=== PATIENT | male | born 1940 | race Caucasian/White ===

== ENCOUNTER 2016-11-12 20:03 | Inpatient (IN) ==
[2016-11-12 20:51] LABS: MANUAL DIFF NEEDED? NO
[2016-11-12 20:54] LABS: BASO% 0.5 % (0.0-0.8); EOS# 0.26 X1000 (0.0-0.7); HEMATOCRIT 38.2 % (42.0-52.0); HEMOGLOBIN 13.1 g/dL (14.0-18.0); IMM GRAN# 0.12 X1000 (0.0-0.04); IMM GRAN% 0.9 % (0.0-0.5); LYMPH# 3.46 X1000 (1.2-3.4); LYMPH% 26.7 % (20.5-51.1); MCH 28.6 PG (27-31); MCHC 34.3 g/dL (33-37); MCV 83.4 FL (81-99); MONO# 1.93 X1000 (0.11-0.59); MONO% 14.9 % (1.7-9.3); MPV 10.5 FL (7.4-10.4); PLT 231 X1000 (130-400); RBC 4.58 XMIL (4.7-6.1)
[2016-11-12 21:20] LABS: ALBUMIN 3.3 g/dL (3.5-5.0); CALCIUM 9.4 mg/dL (8.8-10.2); TOTAL BILIRUBIN 0.23 mg/dL (0.20-1.00); TOTAL PROTEIN 6.3 g/dL (6.3-8.3)
--- NOTE | 2016-11-12 21:24 | Diag Imaging Result Doc PS360 ---
EXAM: CHEST-2 VIEWS HISTORY: sob TECHNIQUE: AP and lateral chest COMMENT: There is no evidence of acute cardiac or pulmonary disease. Compared to 02/19/2016 there is been no significant change in the appearance of the chest. IMPRESSION: No acute disease Electronically signed by Juan Nguyễn 11/12/2016 9:22 PM
[2016-11-12] MEDS ORDERED: NS 1,000 ML IV ONE (21:58)
--- NOTE | 2016-11-12 22:26 | PROVIDER DOCUMENTATION ---
This chart was entered by Kathrine Bush Scribe, acting as scribe for Mehdi Carr MD. HPI-General Adult - General Chief Complaint: General Adult Stated Complaint: "DEHYDRATED" Time Seen by Provider: 11/12/16 20:37 Source: patient Allergies/Adverse Reactions: Patient Allergies Allergy/AdvReac Type Severity Reaction Status Date / Time No Known Allergies Allergy Verified 11/12/16 21:13 Home Medications: Home Medication List Medication Instructions Recorded Confirmed Last Taken Type Amlodipine Besylate/Benazepril 5 - 20 mg PO DAILY 03/10/12 02/19/16 02/19/16 08: 00 History [Lotrel 5-20 mg Capsule] Calcium Carbonate/Vitamin D2 2 tab PO DAILY 03/10/12 02/19/16 02/19/16 08:00 History [Calcium with Vit D Tablet] Flaxseed Oil 1,200 mg PO DAILY 03/10/12 02/19/16 02/19/16 08:00 History Furosemide [Lasix] 40 mg PO DAILY 03/10/12 02/19/16 02/19/16 08:00 History Insulin Glargine,Hum.rec.anlog 55 units SUBQ BID 03/10/12 02/19/16 02/19/16 08: 00 History [Lantus] Insulin Lispro [Humalog] 36 units SUBQ TID 03/10/12 02/19/16 02/19/16 12:00 History Omeprazole [Prilosec] 20 mg PO DAILY 03/10/12 02/19/16 02/19/16 07:00 History Pregabalin [Lyrica] 150 mg PO DAILY 03/10/12 02/19/16 02/19/16 08:00 History Tamsulosin [Flomax] 0.4 mg PO DAILY 03/10/12 02/19/16 02/19/16 08:00 History Celecoxib [Celebrex] 02/19/16 02/19/16 08:00 History Duloxetine [Cymbalta] 60 cap 02/19/16 02/19/16 08:00 History Acarbose [Precose] 100 mg PO TID #90 tablet 02/23/16 Unknown Rx Levofloxacin [Levaquin] 250 mg PO DAILY #7 tablet 02/23/16 Unknown Rx Liraglutide [Victoza] 1.2 mg SUBQ DAILY #3 pen.injctr 02/23/16 Unknown Rx Sitagliptin [Januvia] 100 mg PO DAILY #90 tablet 02/23/16 Unknown Rx - History of Present Illness -Gen Adult Nature of Presenting Problems: Pt is a 76 year old male who came to the ED with a cc of dehydration and N/V/D. Pt reports yesterday he had a virus yesterday and today he is unable to void. Pt reports he is SOB today. Location of Pain/Injury: reports: none Pain Radiation: reports: no radiation Quality of Pain: reports: none Severity: reports: mild Onset/Duration: reports: 24 hours ago Timing: reports: still present Context/Activities at Onset: reports: none Modifying Factors: improves with: nothing Associated Symptoms: reports: diarrhea, nausea, shortness of breath, vomiting Similar Symptoms Previously?: No Recently seen or treated by another doctor?: No Review of Systems - Adult - REVIEW OF SYSTEMS - ADULT Constitutional: denies: chills, fever Eyes: reports: no symptoms reported Ears, Nose, Mouth & Throat: denies: ear pain, loose teeth Cardiovascular: reports: no symptoms reported Respiratory: reports: shortness of breath. denies: cough, pleurisy, wheezing Gastrointestinal: reports: diarrhea, nausea, vomiting. denies: difficulty swallowing, frequent heartburn Genitourinary: denies: flank pain, hesitency Musculoskeletal: reports: no symptoms reported Integumentary: reports: no symptoms reported Neurological: denies: loss of balance, seizure Psychiatric: reports: no symptoms reported Endocrine: reports: no symptoms reported Hematologic/Lymphatic: reports: no symptoms reported Allergic/Immunologic: reports: no symptoms reported All Other Systems: Reviewed and Negative Past History - Adult - PAST MEDICAL HISTORY-ADULT Review of Records: reports: Nursing Assessment Review Major Childhood Illnesses: reports: denies history Cardiovascular: reports: CHF, HTN Respiratory: reports: asthma, COPD Gastrointestinal: reports: denies history Obstetrical/Gynecological: reports: denies history Genitourinary: reports: kidney disease Musculoskeletal: reports: denies history Neurological: reports: denies history Endocrine/Immune: reports: denies history Other Conditions: reports: denies history - IMMUNIZATION STATUS Childhood Immunizations: See Nurse Assessment Flu Vaccine: See Nurse Assessment - FAMILY HISTORY Family History: reviewed, not pertinent Physical Exam-General - CONSTITUTIONAL General Appearance: alert, no apparent distress, obese, other (short neck, large neck; when pt was sitting up blood pressure dropped) - EYES Eyes: PERRL/EOMI, pink conjunctivae - HEAD, EARS, NOSE, MOUTH & THROAT HENMT: normocephalic/atraumatic, moist mucous membranes - NECK Neck: non-tender, other (excessive neck tissue; sleep apnea) - RESPIRATORY Respiratory: chest non-tender, lungs clear - CARDIOVASCULAR Cardiovascular: normal peripheral pulses, tachycardia - GASTROINTESTINAL (ABDOMEN) Abdominal Exam: normal bowel sounds, non tender - MUSCULOSKELETAL Back Exam: normal inspection, no CVA tenderness Extremity: normal range of motion, non-tender - SKIN Integumentary: normal color, normal turgor - NEUROLOGIC Neurologic: grossly normal - PSYCHIATRIC Psych/Mental Status: normal mood/affect, normal thought content, normal thought process, oriented x 3 Progress - PLAN OF CARE/RESULTS Progress/Plan/Lab Results: Vital Signs - 8 hr 11/12/16 20:09 Temperature 99.5 F Pulse Rate 112 H Respiratory Rate 18 Blood Pressure 101/64 O2 Sat by Pulse Oximetry 95 Laboratory Results - last 24 hr 11/12/16 11/12/16 11/12/16 20:35 20:35 20:35 WBC 12.97 H RBC 4.58 L Hgb 13.1 L Hct 38.2 L MCV 83.4 MCH 28.6 MCHC 34.3 RDW Std Deviation 14.9 H Plt Count 231 MPV 10.5 H Immature Gran % (Auto) 0.9 H Neut % (Auto) 55.0 Lymph % (Auto) 26.7 [place] % (Auto) 14.9 H Eos % (Auto) 2.0 Baso % (Auto) 0.5 Immature Gran # (Auto) 0.12 H Neut # (Auto) 7.13 H Lymph # (Auto) 3.46 H [place] # (Auto) 1.93 H Eos # (Auto) 0.26 Baso # (Auto) 0.07 Sodium 135 L Potassium 4.0 Chloride 99 Carbon Dioxide 19 L Anion Gap 17 BUN 48 H Creatinine 6.6 H Estimated GFR/1.73 m2 8 BUN/Creatinine Ratio 7 Glucose 118 H Calculated Osmolality 284 Calcium 9.4 Total Bilirubin 0.23 AST 14 ALT 12 Alkaline Phosphatase 90 Total Protein 6.3 Albumin 3.3 L Globulin 3.0 Albumin/Globulin Ratio 1.1 Plasma Lactate 1.5 Orders Category Date Time Status CHEST-2 VIEWS [RAD] Stat Exams 11/12/16 20:26 Completed CBC WITH DIFF [HEME] Stat Lab 11/12/16 20:35 Completed COMPREHENSIVE METABOLIC PANEL [CHEM] Stat Lab 11/12/16 20:35 Completed LACTATE, PLASMA [CHEM] Stat Lab 11/12/16 20:35 Completed EKG [EKG] Stat Ther 11/12/16 20:30 Ordered Result Diagrams: 11/12/16 20:35 11/12/16 20:35 - EKG 1 Time of EKG reading by physician:: 20:41 EKG Read and Signed by:: Mehdi Carr EKG Interpretation (*Must complete 3 of following elements*): Abnormal Rate: 106 (w/ frequent ventricular complexes; T wave abnormality, consider lateral ischemia. ) Rhythm: sinus tachycardia w/ 1st degree AV block - XRAY 1 XRAY Study: Chest (no acute disease) - CONSULTS/PCP/HOSPITALIST Notification #1 *Consult/PCP/Hospitalist*: Dr. Carl Time Discussed: 22:15 Departure - Departure Date of Disposition Decision: 11/12/16 Time of Disposition Decision: 22:22 DIAGNOSIS: Volume depletion, Diabetes Renal failure (ARF), acute on chronic Qualifiers: Acute renal failure type: unspecified Chronic kidney disease stage: stage 4 ( severe) Qualified Code(s): N17.9 - Acute kidney failure, unspecified; N18.4 - Chronic kidney disease, stage 4 (severe) Disposition: ADMITTED INPATIENT 09 Certified Medical Emergency: Emergent Condition: Fair Referrals and Follow-Ups: Saul Tabor MD [Primary Care Provider] - - Critical Care Note This patient required my direct & personal management of CC.: No This chart was documented by the indicated scribe, (Kathrine Bush Scribe) and accurately reflects the services I performed and decisions made by me, Mehdi Carr MD, as attested by the provider's signature.
[2016-11-13] MEDS ORDERED: TYLENOL PO PRN (00:41)
[2016-11-13] MEDS ORDERED: ZOFRAN IV PRN (00:41)
--- NOTE | 2016-11-13 00:51 | HISTORY AND PHYSICAL ---
REASON FOR ADMISSION: A 2-day history of lightheadedness and weakness, following a 4-day history of vomiting and diarrhea. HISTORY OF PRESENT ILLNESS: Mr. Aylin Peters is a 76-year-old male with a past medical history of hypertension, sleep apnea, BPH, hyperlipidemia, lumbar spondylosis, kidney stones, type 2 diabetes, restless legs syndrome, who comes in today complaining of generalized weakness, thirst, dizziness posturally. He states that for the last 4 days he has been having intermittent nausea, vomiting, diarrhea, which got worse over the last 36 hours. He said he is averaging about between 5-10 times a day, i.e., that is diarrhea and vomiting. No melanotic stools. No hematochezia, hematemesis, or coffee grounds. No noticeable abdominal pain, except for some mild bilateral groin pain, which started 24 hours ago. No abdominal distention, fever, or chills. No genitourinary symptoms, although he has had a longstanding history of urge incontinence. His a , who is a retired nurse, was very concerned today because the patient had not voided in the last 36 hours. No bleeding from any orifice. He reports that both she and her brother-in- law are now having bowel-type GI symptoms. The patient's vomiting and diarrhea ceased sometime around midday today, and he had no other GI-related complaints. No PND or orthopnea. No cardiorespiratory symptoms. No chest pain. REVIEW OF SYSTEMS: No arthralgias or rash. No confusion or cognitive impairment. Twelve-system review is negative, except positive findings per HPI. ALLERGIES: No allergies. MEDICATIONS: Lotrel 5/20 daily, Lipitor 40 mg daily, biotin 10 mg daily, calcium carbonate with vitamin D 2 tablets daily, Cymbalta 30 mg daily, flax seed 1200 mg daily, Lasix 80 mg daily, Lantus 55 units b.i.d., lispro insulin 36 units with meals, Victoza 1.2 mg daily, Prilosec 20 mg daily, Lyrica 100 mg b.i.d., Januvia 100 mg daily, Flomax 0.4 mg daily. FAMILY HISTORY: Notable for coronary artery disease, diabetes. SOCIAL HISTORY: Patient is . He does smoke, drink, or use illicit drugs. SURGICAL HISTORY: Umbilical hernia repair, hemorrhoidectomy, right knee surgery, lumbar spine surgery, and lithotripsy. LABORATORY WORK: White count 13,000. Hemoglobin and hematocrit 13 and 38. Platelets 231,000. BUN 48, creatinine 6.6, glucose 118. Chest film: No acute cardiopulmonary process. Did note that his skeletal structure of his thoracic cavity showed some degree of osteoporosis. PHYSICAL EXAMINATION: GENERAL: Morbidly obese elderly man who is not in acute distress. He is A and O x3. Normal mood and affect. VITAL SIGNS: Blood pressure 128/89, respirations 21, pulse is 94, temperature is 99.5 degrees. He is 95% on 4 L. HEENT: Head is normocephalic, atraumatic. Eyes DAVE, EOMI. He is anicteric and not pale. ENT: Oropharynx normal. NECK: Supple. There is no JVD or carotid bruits. NECK: Short and thick. CHEST: Clear to auscultation. Good air entry in both lung rizo. CARDIOVASCULAR: First and second heart sounds heard. No gallops, murmurs, rubs. Rhythm is regular. ABDOMEN: Protuberant, soft, with mild left CVA tenderness. Left lower quadrant mild tenderness. No rebound or guarding. Bowel sounds are hypoactive. RECTUM: Deferred. EXTREMITIES: Patient has trace to 1+ pitting edema mid mina. Pulses distally intact. No clubbing or peripheral cyanosis. NEUROLOGICAL: No focal deficits. SKIN: Intact. No breakdown, lesions, or erythema. MUSCULAR: Grossly normal. ASSESSMENT: 1. Kidney failure, secondary to dehydration. 2. Dehydration, secondary to presumed viral gastroenteritis. 3. Gastroenteritis, resolved. 4. Type 2 diabetes. 5. Obesity hypoventilation syndrome. 6. Sleep apnea. 7. Hypertensive heart and kidney disease. PLAN: At this time, continue IV fluid resuscitation. I will put a Garcia catheter in primarily because of the patient's pre-existing history of BPH, and the fact that he is complaining of bilateral groin pain, which may or may not suggest ureteral obstruction. Also, this will serve to assess his true output during fluid resuscitation. We will consult Dr. Rod for further input. Check BMP daily. DVT prophylaxis was ordered with heparin. Modified dose of Lantus, due to patient's worsening renal function, to avoid hypoglycemia, but can continue Victoza, which does not require any renal dosing. If diarrhea recurs, will recommend stool studies, but for now this is a moot point. The patient's baseline creatinine is running between 1.5 to less than 2, and this is a significant increase in his creatinine, which may be due to both prerenal and postrenal etiologies. Renal ultrasound was ordered for this purpose. cc: Salazar Carl MD
[2016-11-13] MEDS ORDERED: NORCO-7.5 PO ONE (01:26)
[2016-11-13] MEDS: NS 1,000 ML IV SCH ×3 (02:02→18:23)
--- NOTE | 2016-11-13 05:32 | EKG Report ---
Test Performed on : 11/12/2016 8:41:21 PM Test Reason : sob Blood Pressure : / mmHG Vent. Rate : 106 BPM Atrial Rate : 106 BPM P-R Int : 246 ms QRS Dur : 090 ms QT Int : 308 ms P-R-T Axes : 042 -16 099 degrees QTc Int : 409 ms Sinus tachycardia. with 1st degree AV block. with frequent premature ventricular complexes. T wave abnormality, consider lateral ischemia Abnormal ECG When compared with ECG of 19-FEB-2016 15:58, No significant change was found Unconfirmed Result
[2016-11-13 06:38] LABS: MANUAL DIFF NEEDED? NO
[2016-11-13 06:46] LABS: BASO% 0.4 % (0.0-0.8); EOS# 0.28 X1000 (0.0-0.7); EOS% 2.1 % (0.0-10.0); HEMATOCRIT 35.2 % (42.0-52.0); HEMOGLOBIN 11.8 g/dL (14.0-18.0); IMM GRAN# 0.12 X1000 (0.0-0.04); IMM GRAN% 0.9 % (0.0-0.5); LYMPH# 2.99 X1000 (1.2-3.4); LYMPH% 22.9 % (20.5-51.1); MCH 28.6 PG (27-31); MCHC 33.5 g/dL (33-37); MCV 85.2 FL (81-99); MONO# 2.16 X1000 (0.11-0.59); MONO% 16.5 % (1.7-9.3); MPV 10.3 FL (7.4-10.4); NEUT% 57.2 % (42.2-75.2); PLT 194 X1000 (130-400); RBC 4.13 XMIL (4.7-6.1)
[2016-11-13 07:08] LABS: URINE SOURCE CATH
[2016-11-13 07:19] LABS: CALCIUM 8.7 mg/dL (8.8-10.2); POTASSIUM 4.3 mmol/L (3.5-5.1)
[2016-11-13 07:27] LABS: BILIRUBIN URINE SMALL (NEGATIVE); BLOOD URINE NEGATIVE (NEGATIVE); COLOR ORANGE; GLUCOSE URINE 70 mg/dL (NEGATIVE); LEUKOCYTES URINE NEGATIVE (NEGATIVE); NITRITE URINE NEGATIVE (NEGATIVE); PROTEIN URINE >600 mg/dL (NEGATIVE); SP GRAVITY URINE 1.027; TURBIDITY URINE TURBID (CLEAR); UR EPITHELIAL CELLS >10 /HPF (<10); URINE MICRO REVIEW NEEDED? YES; URINE RBC <10 /HPF (<10); UROBILINOGEN URINE NORMAL (NORMAL)
[2016-11-13 07:28] LABS: URINE CASTS GRANULAR PRESENT; URINE SMALL ROUND CELLS TRANS PRESENT
[2016-11-13 07:29] LABS: URINE BACTERIA 4+ /HPF; URINE CULTURE NEEDED? YES
[2016-11-13] MEDS: HUMALOG SUBQ SCH ×3 (07:45→16:57)
[2016-11-13] MEDS ORDERED: INSULIN PEN NEEDLES ONE (08:00)
--- NOTE | 2016-11-13 08:24 | Diag Imaging Result Doc PS360 ---
EXAM: US RENAL 2 (RETROPER) COMPLETE HISTORY: acute on chr kidney dx flank pain TECHNIQUE: COMPARISON: 02/20/2016 FINDINGS: The right kidney measures 12.5 x 5.8 x 6.1 cm. Questionable mild increased renal echogenicity. Normal cortical thickness. No renal stones or hydronephrosis. No renal mass. The left kidney measures 12.1 x 6.1 x 5.9 cm. There is a 1.3 cm renal cyst. No stone or hydronephrosis. Normal cortical thickness. Urinary bladder is not distended IMPRESSION: No definite change compared to the prior exam. Electronically signed by Alec Castellanos 11/13/2016 8:21 AM
[2016-11-13] MEDS: LASIX PO SCH (10:38)
[2016-11-13] MEDS: HEPARIN SUBQ SCH (10:39)
[2016-11-13] MEDS: FLOMAX PO SCH (10:39)
[2016-11-13] MEDS: PRILOSEC PO SCH (10:39)
[2016-11-13] MEDS: VICTOZA SUBQ SCH (10:40)
[2016-11-13] MEDS: LANTUS SUBQ SCH (10:40)
[2016-11-13 11:59] LABS: UR PROT RANDOM 412.1 mg/dL
--- NOTE | 2016-11-13 15:58 | CONSULTATION ---
DATE OF CONSULTATION: 11/13/2016 REASON FOR ADMISSION: Lightheadedness, weakness, nausea and vomiting x4 days since last Friday. REASON FOR CONSULT: Acute kidney injury on chronic kidney disease stage 3B4. CONSULTING PHYSICIAN: Salazar Carl MD HISTORY OF PRESENT ILLNESS: Mr. Peters is a 76-year-old white male, who has been seen by our services in the past approximately 6-8 months ago. The patient at that time had increased lower extremity swelling, decreased urinary output, and increased work of breathing. He subsequently did well. His baseline creatinine was 1.3 at that time. It had elevated into the mid 2 range and after diuresis patient's swelling and increased work of breathing has improved and he was doing well. He has been followed by Dr. Tabor, which his creatinine had decreased back to his basement of 1.3 - 2. Subsequently, the patient stated that he was doing well up until 4- 5 days ago. He became nauseated last . He started throwing up on Friday. He has had nausea, vomiting, and diarrhea for 4-5 days, averaging anywhere from 5-10 stools a day. Stated that this had gotten worse in the last 24 hours, to where he was severely weak and could not attempt to get up to the bathroom anymore, then he was brought in by ambulance to the hospital. He was then admitted and has been worked up. He is in acute kidney injury. His initial creatinine upon admission was 6.6. He was hyperkalemia. It is now down to 5.9. He continues with IV fluids. His potassium has corrected. It is noted that patient has a urinary tract infection. His edema has not worsened in the last 12-24 hours since his admission. He denies any chest pain or palpitations. Positive for weakness. Positive for nausea. He states that he continues with diarrheal stools, though he has not had any emesis. He denies any fever or chills. It was also noted that patient had not voided for over 36 hours while he was at home. He currently has a Garcia catheter in place and he has put out greater than 250 mL out just since this a.m. PAST MEDICAL HISTORY: Chronic kidney disease stage 3B4, hypertension, sleep apnea, benign prostatic hypertrophy, hyperlipidemia, lumbar spondylosis, history of nephrolithiasis, type 2 diabetes, restless legs syndrome, anemia secondary to chronic disease, reflux, and peripheral neuropathy. SURGICAL HISTORY: Umbilical hernia repair, hemorrhoidectomy, right knee surgery , lumbar spine surgery, and lithotripsy. FAMILY HISTORY: Notable for coronary artery disease and diabetes. Negative for renal disease. SOCIAL HISTORY: He is . He lives with his spouse. He denies any tobacco, alcohol, or illicit drug use. CURRENT ALLERGIES: Listed as no known drug allergies. MEDICATIONS ARE: Lotrel, Lipitor, Biotin, calcium carbonate, vitamin D2, Cymbalta, flaxseed, Lasix, Lantus, lispro, Victoza, Prilosec, Lyrica, Januvia, and Flomax. REVIEW OF SYSTEMS: Times 10 with pertinent positives listed above in the HPI. VITAL SIGNS: Most recent vital signs reveals temperature 98.1 degrees, blood pressure 161/77, heart rate 78, respirations. He is on room air. Last recorded saturation of 96 %. He has had 0 recorded in, though he does have a L of IV fluid hanging. He has had 250 mL out in his Garcia catheter documented for the a.m. and he already has 200 mL in his Garcia bag. LABS: Sodium 136, potassium 4.3, chloride 100, CO2 20, BUN 52, creatinine 5.9, glucose 242. Anion gap 16, calcium 8.7, white count 13.06. Hemoglobin 11.8, hematocrit 35.2 , platelet count 194,000. Urine is positive for proteinuria, turbid. Positive for UTI symptoms. PHYSICAL EXAMINATION: General: This is a 76-year-old white male. He is currently resting in bed. He has just returned from having a renal ultrasound. He is in no acute distress. Skin: Warm and dry. HEENT: Normocephalic, atraumatic. Conjunctiva is pale. He has DAVE. Mucous membranes are dry. Neck: Supple. Trachea midline. Unable to determine JVD. Cardiovascular: Regular rate and rhythm. He has no murmur or gallops appreciated. His rhythm is sinus rhythm on the monitor. Abdomen: Protuberant, large. Mild tenderness on the lower left quadrant. Positive bowel sounds noted. Genitourinary: This is not inspected. Garcia catheter remains in place. Extremities: He has trace to 1+ pitting edema. He has chronic venous stasis evident. No clubbing or cyanosis. Neurological: Alert and oriented x3. Good historian. ASSESSMENT AND PLAN: 1. Acute kidney injury on chronic kidney disease stage 3B4. This is secondary to dehydration and an Eugenio affect, along with having taken his Lasix for 4 days, associated with nausea and vomiting. We agree with continuing IV fluids of normal saline at 125 mL an hour, monitoring patient's intake and output. We are awaiting his renal ultrasound report. We will check some urine electrolytes. No indications for any intervention or changes at this time. 2. Electrolytes. This remains stable. 3. Acid-base balance. This is acceptable. 4. Anemia. This is close to target. 5. Decreased urinary output. Patient now has a Garcia catheter with adequate urine out at this time. 6. Chronic nausea, vomiting, and diarrhea. This is followed by the primary care team. I would to thank you for allowing us to follow with this patient. Seen, data reviewed, discussed with Lissette Thomas on 11/13/16. I agree with the above assessment and plan of care. rg Dictated by CLAUDINE Flannery for Gustavo Rod MD cc: CLAUDINE Flannery MD Jagan Reddy, MD MTDD
[2016-11-13] MEDS: FLONASE NAS SCH (16:56)
[2016-11-13] MEDS ORDERED: FLAGYL 250 MG/NS 250 MG/50 ML IVPB IV ONE (20:00)
--- NOTE | 2016-11-13 21:14 | PROGRESS NOTE ---
DATE: 11/13/2016 SUBJECTIVE: Level 3 documentation. Admitted to the hospital in the middle of the night. Apparently, caregiver told me on the phone, patient has nausea, vomiting, diarrhea for the last 2 days. She gave her 80 mg of Lasix. He is not peeing. He was brought into the emergency room. In the ER, the patient was found to have acute kidney failure, baseline creatinine 3.1. Garcia placed, started on IV fluids. Renal consult was obtained. Upon questioning, he denies any complaints, other than some dull abdominal pain on the left side. Rest of the review of systems are normal. PAST MEDICAL HISTORY: Reviewed. PAST SURGICAL HISTORY: Reviewed. MEDICATIONS: Reviewed. PHYSICAL EXAMINATION: Vital Signs: He is afebrile. Blood pressure is stable. 5 feet, 7 inches, 303 pounds. I's and O's negative 725 mL. HEENT: Within normal limits. Neck: Supple. No lymphadenopathy. No goiter. Chest: Clear to auscultation. Heart: Regular Abdomen: Belly is soft, obese, slightly tender in the left side. Genitourinary: Garcia catheter was placed. Extremities: 1+ pedal edema. No obvious focal deficits. INVESTIGATIONS: CBC: White cell count 13, hematocrit 35, platelets 194,000. SMA-7: Sodium 136, potassium 4.3, chloride 100, BUN 52, creatinine 5.9, glucose 242, calcium 8.7. Renal ultrasound was negative. ASSESSMENT AND PLAN: 1. Acute kidney failure on chronic kidney disease due to diabetic nephropathy. Continue IV fluids. Follow up on SMA-7. Renal ultrasound is negative for postobstruction. 2. Type 2 diabetes. On Victoza and Lantus 40 units subcutaneous b.i.d. Follow up on sliding scale. 3. Deep venous thrombosis prophylaxis with 5000 units of heparin twice daily. 4. Acid reflux disease, on Prilosec. 5. Benign prostatic hypertrophy, on Flomax. 6. Gastroenteritis symptoms. If continues to be symptomatic,, consider stool studies. We will begin with ADA diet, and we will discuss with Dr. Rod and follow up. TIME SPENT: Developed documentation is 35 minutes. cc: Asa Tabor MD
[2016-11-14] MEDS: FLONASE NAS SCH ×3 (00:16→22:26)
[2016-11-14] MEDS: HEPARIN SUBQ SCH ×3 (00:16→22:26)
[2016-11-14] MEDS: LANTUS SUBQ SCH ×3 (00:17→22:27)
[2016-11-14] MEDS: NS 1,000 ML IV SCH ×2 (01:16→10:44)
[2016-11-14] MEDS: HUMALOG SUBQ SCH ×3 (06:39→17:02)
[2016-11-14 07:54] LABS: ALBUMIN 3.3 g/dL (3.5-5.0); CALCIUM 8.2 mg/dL (8.8-10.2); POTASSIUM 4.5 mmol/L (3.5-5.1)
[2016-11-14] MEDS: FLAGYL 250 MG/NS 250 MG/50 ML IVPB IV SCH ×3 (10:18→22:26)
[2016-11-14] MEDS: LASIX PO SCH (10:42)
[2016-11-14] MEDS: CULTURELLE PO SCH (10:42)
[2016-11-14] MEDS: PRILOSEC PO SCH (10:42)
[2016-11-14] MEDS: FLOMAX PO SCH (10:42)
[2016-11-14] MEDS: VICTOZA SUBQ SCH (10:43)
--- NOTE | 2016-11-14 11:17 | PROGRESS NOTE ---
DATE: 11/14/2016 DATE SEEN: 11/14/2016 TIME SEEN: 07:45 SUBJECTIVE: Mr. Peters is resting quietly in bed. He does state that he is aching all over, with possible spasms to his lower pelvic area. States that he has an urge to void, though he has a Garcia catheter in place. He denies chest pain. No increased work of breathing. No increased swelling. OBJECTIVE: Vital Signs: Temperature 98.1 degree,s blood pressure 144/80, heart rate 93, respirations 21. He is on 2 L nasal cannula. Last recorded saturation 100%. They have recorded 0 in, though the patient states that he did eat yesterday. He has had 2225 out per Garcia catheter. LABS: Sodium 139, potassium 4.5, chloride 105, CO2 20. BUN 55, creatinine 4.5 , glucose 261. Anion gap 14, calcium 8.2, phosphorus 5.2, albumin 3.3. Previous hemoglobin 11.8 on the . Clostridium difficile is negative. Renal ultrasound indicates the right kidney measuring 12.5 with the left is 12.1. Patient had urine electrolytes completed yesterday with a FENa score of 0.41%. PHYSICAL EXAMINATION: General: This is a 76-year-old white male. He is sitting on the side of the bed. He is in mild distress secondary to possible bladder spasms. Otherwise, he appears chronically ill. Skin: Warm and dry. HEENT: Normocephalic, atraumatic. Conjunctiva is pale. He has DAVE. Mucous membranes moist. Neck: Supple. Trachea midline. Unable to determine JVD due to neck size and body habitus. Cardiovascular: He has regular rate and rhythm. He has no murmur or gallop appreciated. He is sinus rhythm on his monitor. Lungs: Clear to auscultation anterior. Equal excursion on O2. Abdomen: Protuberant, large, soft, nontender. Positive bowel sounds. Genitourinary: Garcia catheter is in place. Not inspected. Adequate urine out to the bag. Extremities: Have trace to 1+ pitting edema. He has chronic venous stasis is evident. No clubbing or cyanosis. Neurological: Alert and oriented x3. ASSESSMENT AND PLAN: 1. Acute kidney injury on chronic kidney disease stage III-B. More than likely , this is secondary to dehydration with a low FENa score and related GILBERTO affect. The patient continues on IV fluids. His creatinine has improved down to 4.5 from 5.9. Previous baseline on this patient has been 2.3 in late 2016. We will continue to monitor labs on a daily basis. No indications for intervention. Adequate urine out. 2. Electrolytes and acid-base balance. These do remain stable. 3. Anemia. This is close to target. 4. Decreased urine output. The patient has improved after having Garcia catheter placed. 5. Dehydration associated with nausea, vomiting, and diarrhea. This is followed by the primary care team and this has improved. 6. Possible bladder spasms. Unfortunately with the patient's creatinine at the level where it is at, we will not place him on Pyridium or methyl blue, we will defer to the primary care team for possible low-dose muscle relaxant. I would to thank you for allowing us to follow with this patient. Seen, data reviewed, discussed with Lissette Thomas on 11/14/16. I agree with the above assessment and plan of care. rg Dictated by CLAUDINE Flannery for Gustavo Rod MD cc: CLAUDINE Flannery MD Jagan Reddy, MD MTDD
[2016-11-14] MEDS: LOTRISONE CREAM TOP SCH ×2 (17:01→22:27)
[2016-11-15] MEDS: FLAGYL 250 MG/NS 250 MG/50 ML IVPB IV SCH ×3 (04:28→23:04)
--- NOTE | 2016-11-15 05:28 | PROGRESS NOTE ---
DATE: 11/14/2016 SUBJECTIVE: Patient's gastroenteritis symptoms have decreased. Able to form stool. Slightly tender in the left lower quadrant. REVIEW OF SYSTEMS: None reported. OBJECTIVE: Vital Signs: Stable on room air 97%. HEENT: Within normal limits. Chest: Clear. Heart: Sounds are regular. Abdomen: Belly is soft. Nontender. Good bowel sounds. No masses palpable. INVESTIGATIONS: SMA 7: Sodium 139, potassium 4.5, BUN 55, creatinine 4.5, glucose 260. Stool cultures so far negative. Urine is negative. Occult blood slightly positive. ASSESSMENT AND PLAN: 1. Gastroenteritis. Symptoms resolving with mild colitis and IV Flagyl. 2. Acute kidney injury with chronic renal failure probably from dehydration. Continue on gentle hydration. 3. Type 2 diabetes on Lantus 45 subcutaneously b.i.d. 4. Deep vein thrombosis prophylaxis. Subcutaneous heparin. 5. We will follow up on renal profile on a day daily basis. PLAN OF CARE: We will discontinue Garcia in the morning and continue to monitor the trend of renal function tests. LEVEL OF DOCUMENTATION: Twenty-five minutes. cc: Asa Tabor MD MTDD
[2016-11-15] MEDS: HUMALOG SUBQ SCH ×3 (06:10→23:10)
[2016-11-15 07:47] LABS: ALBUMIN 3.2 g/dL (3.5-5.0); CALCIUM 8.7 mg/dL (8.8-10.2)
[2016-11-15] MEDS: HEPARIN SUBQ SCH ×2 (09:09→23:04)
[2016-11-15] MEDS: LASIX PO SCH (09:09)
[2016-11-15] MEDS: FLOMAX PO SCH (09:09)
[2016-11-15] MEDS: PRILOSEC PO SCH (09:09)
[2016-11-15] MEDS: CULTURELLE PO SCH (09:09)
[2016-11-15] MEDS: LANTUS SUBQ SCH ×2 (09:09→23:06)
[2016-11-15] MEDS: VICTOZA SUBQ SCH (09:10)
[2016-11-15] MEDS: LOTRISONE CREAM TOP SCH ×2 (09:17→23:07)
[2016-11-15] MEDS: FLONASE NAS SCH ×2 (09:17→23:05)
--- NOTE | 2016-11-15 09:52 | PROGRESS NOTE ---
DATE: 11/15/2016 SUBJECTIVE: He continues to complain of nasal congestion. He did not derive any benefit from Flonase. Otherwise, no shortness of breath. No nausea or vomiting. OBJECTIVE: Vital Signs: Blood pressure 146/74, heart rate 86, respiration 18, afebrile. Intake 2.2 L; output 3.5 L. General: On physical exam, obese man in no acute distress. Skin: Warm and dry. Eyes: Conjunctivae are pink. Pupils are equal. Neck: Neck veins are not visible. Heart: Regular with no gallops or murmurs. Lungs: Have equal breath sounds. No crackles. Abdomen: Obese, soft. Bowel sounds present. Extremities: Have trace edema. No clubbing or cyanosis. LABORATORY DATA: Sodium 143, potassium 4.0, chloride 109, bicarbonate 20, BUN 47, creatinine 3.3. IMPRESSION: 1. Acute kidney injury. Progressive improvement. Excellent urine output. No changes. 2. Nasal congestion. He asked for me to intervene, so I ordered Afrin nasal spray for 2 days. 3. Electrolytes are in target. 4. Acid base in target. cc: MD Asa Nolen MD
--- NOTE | 2016-11-15 18:23 | PROGRESS NOTE ---
DATE: 11/15/2016 SUBJECTIVE: The patient is doing very well. His diarrhea stopped and getting formed stool and a slightly complaing of left lower quadrant pain. Complains of diffuse body pains. REVIEW OF SYSTEMS: None reported. PHYSICAL EXAMINATION: Vital Signs: Pulse is 87, blood pressure 150/70 and 96% . HEENT: Within normal limits. Obese Chest: Clear. Heart: Sounds are regular. Abdomen: Belly is soft. No signs of peritonitis. Extremities: No peripheral edema. INVESTIGATIONS: SMA 7, sodium 143, potassium 4.0, chloride 109, BUN 47, creatinine 3.3, glucose 207. Stool cultures were negative. Urine cultures were negative. ASSESSMENT AND PLAN: 1. Acute kidney injury with chronic renal failure. Stable. Creatinine is coming down to baseline. IV fluids stopped. Advance the diet/diabetic diet. Discontinue Garcia. 2. Colitis, gastroenteritis. Continue on Flagyl. 3. Diabetes. Continue on Lantus and sliding scale 4. Deep venous thrombosis prophylaxis with subcutaneous heparin. Continue probiotics , encourage him out of the bed with increase in activity. LEVEL OF DOCUMENTATION: Twenty-five minutes. cc: Asa Tabor MD MTDD
[2016-11-15] MEDS: AFRIN NASAL SPRAY NAS SCH (23:06)
[2016-11-16] MEDS: FLAGYL 250 MG/NS 250 MG/50 ML IVPB IV SCH ×3 (06:37→23:52)
[2016-11-16] MEDS: HUMALOG SUBQ SCH ×3 (06:38→16:55)
[2016-11-16 07:06] LABS: ALBUMIN 3.1 g/dL (3.5-5.0); CALCIUM 8.8 mg/dL (8.8-10.2); POTASSIUM 4.3 mmol/L (3.5-5.1)
[2016-11-16] MEDS ORDERED: INSULIN PEN NEEDLES ONE (07:41)
[2016-11-16] MEDS: CULTURELLE PO SCH (08:34)
[2016-11-16] MEDS: PRILOSEC PO SCH (08:34)
[2016-11-16] MEDS: HEPARIN SUBQ SCH ×2 (08:34→21:05)
[2016-11-16] MEDS: LANTUS SUBQ SCH ×2 (08:35→21:06)
[2016-11-16] MEDS: FLOMAX PO SCH (08:35)
[2016-11-16] MEDS: LASIX PO SCH (08:35)
[2016-11-16] MEDS: VICTOZA SUBQ SCH (08:35)
[2016-11-16] MEDS: FLONASE NAS SCH ×2 (08:36→21:07)
[2016-11-16] MEDS: AFRIN NASAL SPRAY NAS SCH ×2 (08:36→21:05)
[2016-11-16] MEDS: LOTRISONE CREAM TOP SCH ×2 (08:36→21:04)
--- NOTE | 2016-11-16 14:29 | PROGRESS NOTE ---
DATE: 11/16/2016 SUBJECTIVE: He continues to improve. He is out of the bed. He has complaints of some bleeding per rectum. REVIEW OF SYSTEMS: None reported. OBJECTIVE: Vital Signs: Afebrile. Vitals are stable. 290 pounds. I's and O's negative 1000. HEENT: Within normal limits. Neck: Supple. Chest: Clear. Heart: Sounds are regular. Abdomen: Belly is soft and obese. Nontender. Good bowel sounds. No masses palpable. LABORATORIES: SMA 7: Sodium 144, potassium 4.3, chloride 110, BUN 39, creatinine 2.7, glucose 240. Microbiology culture of stool: A few white cells are noted. Cultures are negative. Clostridium difficile is negative. ASSESSMENT AND PLAN: 1. Chronic kidney disease with acute kidney injury, improving. 2. Possible bleeding. We will check the CBC and SMA 7 in the morning. 3. Resolving gastroenteritis. 4. Possible colitis, on IV Flagyl. 5. Diabetes, on Victoza and Lantus. 6. Deep vein thrombosis prophylaxis with subcutaneous heparin. 7. Benign prostatic hypertrophy, on Flomax. We will slowly reconcile his home medications. cc: Asa Tabor MD
[2016-11-17] MEDS: FLAGYL 250 MG/NS 250 MG/50 ML IVPB IV SCH (06:06)
[2016-11-17] MEDS: HUMALOG SUBQ SCH (06:11)
[2016-11-17] MEDS ORDERED: INSULIN PEN NEEDLES ONE ×2 (06:39→10:44)
[2016-11-17 07:09] LABS: ALBUMIN 3.2 g/dL (3.5-5.0); CALCIUM 9.1 mg/dL (8.8-10.2); POTASSIUM 4.1 mmol/L (3.5-5.1)
[2016-11-17 07:39] VITALS: BP 147/85
[2016-11-17] MEDS ORDERED: LIPITOR PO SCH (09:00)
[2016-11-17] MEDS ORDERED: CYMBALTA PO SCH (09:00)
[2016-11-17] MEDS ORDERED: JANUVIA PO SCH (09:00)
[2016-11-17] MEDS: FLOMAX PO SCH (09:57)
[2016-11-17] MEDS: VICTOZA SUBQ SCH (09:57)
[2016-11-17] MEDS: LASIX PO SCH (09:57)
[2016-11-17] MEDS: CULTURELLE PO SCH (09:57)
[2016-11-17] MEDS: PRILOSEC PO SCH (09:57)
[2016-11-17] MEDS: LOTRISONE CREAM TOP SCH (09:57)
[2016-11-17] MEDS: HEPARIN SUBQ SCH (09:58)
[2016-11-17] MEDS: AFRIN NASAL SPRAY NAS SCH (09:59)
[2016-11-17] MEDS: FLONASE NAS SCH (09:59)
[2016-11-17] MEDS: LANTUS SUBQ SCH (10:42)
--- NOTE | 2016-11-19 08:19 | DISCHARGE SUMMARY ---
ADMISSION DATE: 11/12/2016 DISCHARGE DATE: 11/17/2016 DISCHARGING DIAGNOSIS: Gastroenteritis with dehydration. SECONDARY DIAGNOSES: 1. Acute kidney injury with chronic renal failure. 2. Chronic kidney disease. Baseline creatinine is 2.8. 3. Benign prostatic hypertrophy. 4. Morbid obesity. Weight is 285 pounds. 5. Type 2 diabetes. 6. Hyperlipidemia. 7. Hypertension. 8. Chronic back pain due to lumbar spondylosis. 9. History of kidney stones. 10. Sleep apnea, on CPAP machine. 11. Osteoarthritis of both knees. 12. Restless legs syndrome. CONSULTANTS: Dr. Rod. BRIEF HISTORY: Please see the H and P that was done by hospitalist, Dr. Carl. In brief, he is a 76-year-old, white male with the above problems. Initially started having intractable diarrhea, nausea, and vomiting for 2 days as per the caregiver. The patient was not able to pee. The family brought him to the hospital. He had explosive diarrhea for 2 days. He was found to have acute kidney failure with a creatinine of 6.8. Garcia catheter was placed. IV fluids started. Dr. Rod was consulted. Following hydration, his creatinine is slowly coming back to normal. Further workup for gastroenteritis, C. difficile was negative. Cultures were negative. Urine cultures were no growth. Slowly able to eat well and getting formed stools. At the time of discharge, he is afebrile. Creatinine came back to 2.8. LABORATORIES: At the time of discharge, as follows: CBC: White cell count 13, hematocrit 35, and platelet count 194,000. SMA 7: Sodium 144, potassium 4.1, chloride 113, BUN 32, creatinine 2.5, glucose 170. Urine cultures were negative. HOSPITAL COURSE: He was also given IV Flagyl. That improved some of the GI symptoms. He is being discharged to home in a stable condition with the following instructions. DISCHARGE INSTRUCTIONS: 1. Daily weights. Baseline weight is 290 pounds. 2. Sleep apnea machine at bedtime. 3. Lantus 55 units subcutaneous b.i.d., regular insulin 35 units t.i.d., Prilosec 20 daily, flaxseed oil 1200 mg daily, Lasix 80 daily, Lyrica 100 p.o. b.i.d., Flomax 0.4 daily, Lotrel 5/20 daily, calcium with vitamin D 1 tablet p.o. b.i.d., Cymbalta 30 mg daily, Januvia 100 daily, Victoza 1.2 mg subcutaneous daily, Lipitor 40 daily, Culturelle 1 tablet daily. 4. Follow up in my office in 10 days. cc: MD Gustavo Us MD
== END 2016-11-17 10:48 | disposition home or self-care (01) ==
LOC: ED 20:03 → 3N 23:39 → SUATTDRO 23:39
PROVIDERS: ADMIT Internal Medicine; ATTEND Internal Medicine